=== PATIENT | female | born 1970 | race Caucasian/White ===

== ENCOUNTER 2016-12-07 20:49 | Observation (INO) | payer OTHER ==
[~2016-12-07] VITALS: Ht 154.9 cm; Wt 86.6 kg
--- NOTE | 2016-12-07 21:32 | DIAGNOSTIC IMAGING REPORT ---
CHEST ONE VIEW PORTABLE CLINICAL HISTORY: Shortness of breath. COMPARISON STUDY: No previous studies for comparison. FINDINGS: Lung volumes are normal. There is mild elevation/eventration of the right hemidiaphragm. Cardiac size is normal. Mediastinal contours are normal. There is no evidence of pulmonary edema. There is a possible small hiatal hernia. IMPRESSION: 1. No acute cardiopulmonary findings. 2. Suspected small hiatal hernia. Electronically signed by: James Rose M.D. 12/07/2016 9:30 PM Dictated Date/Time: 12/07/2016 9:29 PM
[2016-12-07 21:39] LABS: BASO % 0.5 %; BASO ABS # 0.03 K/uL (0-0.2); COMPLETE YES; EOS % 2.2 %; HEMATOCRIT 41.1 % (37-47); IG% 0.2 %; LYMPH % 26.6 %; MEAN CELL VOLUME 89.5 fL (80-100); MEAN CORPUSCULAR HEMOGLOBIN 31.2 pg (25-34); MEAN CORPUSCULAR HGB CONC 34.8 g/dl (32-36); MEAN PLATELET VOLUME 9.5 fL (7.4-10.4); MONO % 7.7 %; NEUT % 62.8 %; PLATELET COUNT 295 K/uL (130-400); RED BLOOD COUNT 4.59 M/uL (4.2-5.4)
[2016-12-07 21:42] LABS: URINE APPEARANCE CLOUDY (CLEAR); URINE BILIRUBIN NEG (NEG); URINE COLOR YELLOW; URINE EPITHELIAL CELL AUTO >30 /lpf (0-5); URINE NITRITE NEG (NEG); URINE SPECIFIC GRAVITY 1.029 (1.000-1.030); UROBILINOGEN NEG (NEG)
[2016-12-07 21:52] LABS: MANUAL MICROSCOPIC REQUIRED? NO; REVIEW REQ? YES
[2016-12-07 21:56] LABS: ZZUR CULT IF INDIC CLEAN CATCH YES
[2016-12-07 22:01] LABS: CALCIUM 8.7 mg/dl (8.5-10.1)
[2016-12-07] MEDS ORDERED: SODIUM CHLORIDE 0.9% 1000ML 1,000 ML IV STA (22:01)
[2016-12-07] MEDS ORDERED: ALBUTEROL 0.083% NEBU SOLN 3 ML VIAL INH STA (22:01)
[2016-12-07 22:02] LABS: ALT/SGPT 44 U/L (12-78); BLOOD UREA NITROGEN 19 mg/dl (7-18); BUN/CREATININE RATIO 16.2 (10-20); CARBON DIOXIDE 18 mmol/L (21-32); CHLORIDE 107 mmol/L (98-107); GLUCOSE 108 mg/dl (70-99); POTASSIUM 3.2 mmol/L (3.5-5.1); SODIUM 141 mmol/L (136-145)
[2016-12-07 22:07] LABS: ALKALINE PHOSPHATASE 72 U/L (45-117); AST/SGOT 30 U/L (15-37)
[2016-12-07] MEDS ORDERED: FLUO40CA8 PO (22:11)
[2016-12-07] MEDS ORDERED: CHOL1TAB42 PO (22:11)
[2016-12-07] MEDS ORDERED: CYAN500T PO (22:11)
[2016-12-07] MEDS ORDERED: FLUT0.15 NAE (22:11)
[2016-12-07 23:02] LABS: VEN BLD GAS O2 SATURATION < 60.0 %; VEN BLOOD GAS BASE EXCESS -1.4 mmol/L; VENOUS BLOOD GAS PCO2 34 mmHg (38.0-50.0); VENOUS BLOOD GAS PO2 20 mmHg
[2016-12-07] MEDS ORDERED: OPTIRAY 320 IV PRN (23:15)
[2016-12-08] VITALS (8 sets, daily range): BP systolic 95–121; BP diastolic 61–84; PULSE 80–92; TEMP 36.4–36.9; O2SAT 95–100; Ht 154.9 cm; Wt 86.6 kg
[2016-12-08] MEDS ORDERED: ONDANSETRON INJ 2 MG/ML 2 ML VIAL IV PRN (00:45)
[2016-12-08] MEDS ORDERED: POTASSIUM CHLR 20 MEQ / WTR 20 MEQ in PREMIXED WATER 100 ML IV STA (00:45)
[2016-12-08] MEDS ORDERED: ACETAMINOPHEN 325 MG TAB PO PRN (00:45)
[2016-12-08] MEDS ORDERED: MAGNESIUM HYDROXIDE SUSP 30 ML UDC PO PRN (00:45)
[2016-12-08] MEDS ORDERED: POLYETHYLENE (MIRALAX) 17 GM PACK PO PRN (00:45)
[2016-12-08] MEDS ORDERED: ALUMINUM/MAGNESIUM/SIMETH (MAALOX MAX) 30 ML UDC PO PRN (00:45)
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
[2016-12-08] MEDS ORDERED: SODIUM CHLORIDE 0.9% 1000ML 1,000 ML IV SCH (01:45)
[2016-12-08] MEDS: POTASSIUM CHLR 10MEQ / WTR IV SCH ×2 (02:07→03:47)
[2016-12-08] MEDS: IV FLUIDS COMPLETED PRN ×2 (03:49→05:15)
--- NOTE | 2016-12-08 04:52 | History and Physical ---
History & Physical Date & Time of Service: Dec 08, 2016 at 04:30 Chief Complaint: Chest Pain, Dyspnea On Exertion Primary Care Physician: Jan Mauro D.O. History of Present Illness Source: patient, family This is a 46 year old female with a PMH of allergic rhinitis, possible asthma, depression presents to the ER due to worsening shortness of breath for the past few weeks; states that she had been cleaning out her basement and thought that the mold exacerbated her allergies. Denies any chest pain/pressure, denies palpitations. Over the weekend, she developed chills, vomiting, diarrhea. The chills and the vomiting have resolved; the diarrhea persists. Upon presentation; EKG shows possible T wave inversions noted in the rivera- lateral leads. She states that she thinks stress and anxiety may also be contributing to her shortness of breath; she wakes up with this SOB due to her stress, anxiety, and thoughts. Family History Diabetes mellitus High cholesterol Hypertension Social History Smoking Status: Never Smoker Marital Status: Occupational Status: employed Allergies Coded Allergies: No Known Allergies (Unverified , 12/07/16) Home Medications Scheduled Cholecalciferol (Vitamin D), 10,000 INTER.UNIT PO DAILY Cyanocobalamin (Vitamin B-12), 500 MCG PO DAILY Fluoxetine (Prozac), 40 MG PO QAM Scheduled PRN Fluticasone Propionate (Nasal) (Flonase Allergy Relief), 1 SPRAY LAURYN DAILY PRN for PRN Review of Systems Constitutional: No fever, No chills Eyes: No worsening of vision ENT: No hearing loss, No unusual epistaxis Respiratory: + shortness of breath, No cough, No sputum Cardiovascular: No chest pain, No edema, No palpitations Abdomen: + nausea, + vomiting, + diarrhea, No pain, No constipation, No GI bleeding Musculoskeletal: No joint pain, No muscle pain Genitourinary - Female: No dysuria, No urinary frequency, No urinary urgency, No urinary incontinence, No urinary retention, No hematuria Neurologic: No weakness, No numbness/tingling, No vertigo, No balance problems Psychiatric: + depression symptoms, + anxiety Endocrine: No fatigue Hematologic / Lymphatic: No abnormal bleeding/bruising Integumentary: No rash Allergic / Immunologic: + environmental allergies, + seasonal allergies Physical Exam Vital Signs Date Time Temp Pulse Resp B/P (MAP) Pulse Ox O2 Delivery O2 Flow Rate FiO2 12/08/16 04:00 Room Air 12/08/16 01:49 Room Air 95.0 12/08/16 01:03 36.4 92 20 121/84 97 Room Air 12/08/16 00:49 69 18 106/77 98 Room Air 12/07/16 23:24 90 18 135/90 100 Room Air 12/07/16 22:48 89 18 121/77 97 Room Air 12/07/16 20:52 36.3 105 18 119/68 98 Room Air General Appearance: no apparent distress Respiratory/Chest: chest non-tender, lungs clear, normal breath sounds, no respiratory distress, no accessory muscle use Cardiovascular: regular rate, rhythm, no edema, no gallop, no JVD, no murmur, normal peripheral pulses Extremities/Musculoskelatal: normal capillary refill, no pedal edema Neurologic/Psych: no motor/sensory deficits, alert, normal mood/affect Skin: normal color Lymphatic: no adenopathy Diagnostics Laboratory Results Results Past 24 Hours Test 12/07/16 21:20 12/07/16 22:47 Range/Units White Blood Count 6.40 4.8-10.8 K/uL Red Blood Count 4.59 4.2-5.4 M/uL Hemoglobin 14.3 12.0-16.0 g/dL Hematocrit 41.1 37-47 % Mean Corpuscular Volume 89.5 80-100 fL Mean Corpuscular Hemoglobin 31.2 25-34 pg Mean Corpuscular Hemoglobin Concent 34.8 32-36 g/dl Platelet Count 295 130-400 K/uL Mean Platelet Volume 9.5 7.4-10.4 fL Neutrophils (%) (Auto) 62.8 % Lymphocytes (%) (Auto) 26.6 % Monocytes (%) (Auto) 7.7 % Eosinophils (%) (Auto) 2.2 % Basophils (%) (Auto) 0.5 % Neutrophils # (Auto) 4.03 1.4-6.5 K/uL Lymphocytes # (Auto) 1.70 1.2-3.4 K/uL Monocytes # (Auto) 0.49 0.11-0.59 K/uL Eosinophils # (Auto) 0.14 0-0.5 K/uL Basophils # (Auto) 0.03 0-0.2 K/uL RDW Standard Deviation 40.7 36.4-46.3 fL RDW Coefficient of Variation 12.5 11.5-14.5 % Immature Granulocyte % (Auto) 0.2 % Immature Granulocyte # (Auto) 0.01 0.00-0.02 K/uL D-Dimer 600 0-500 ug/L FEU Urine Color YELLOW Urine Appearance CLOUDY CLEAR Urine pH 5.0 4.5-7.5 Urine Specific [place] 1.029 1.000-1.030 Urine Protein NEG NEG Urine Glucose (UA) NEG NEG Urine Ketones TRACE NEG Urine Occult Blood 2+ NEG Urine Nitrite NEG NEG Urine Bilirubin NEG NEG Urine Urobilinogen NEG NEG Urine Leukocyte Esterase NEG NEG Urine WBC (Auto) 10-30 0-5 /hpf Urine RBC (Auto) 0-4 0-4 /hpf Urine Hyaline Casts (Auto) 1-5 0-5 /lpf Urine Epithelial Cells (Auto) >30 0-5 /lpf Urine Bacteria (Auto) 2+ NEG Urine Renal Epithelial Cells 0-5 /lpf Urine Pathogenic Casts 0 /lpf Urine Test NEG NEG Sodium Level 141 136-145 mmol/L Potassium Level 3.2 3.5-5.1 mmol/L Chloride Level 107 98-107 mmol/L Carbon Dioxide Level 18 21-32 mmol/L Anion Gap 16.0 3-11 mmol/L Blood Urea Nitrogen 19 7-18 mg/dl Creatinine 1.20 0.60-1.20 mg/dl Est Creatinine Clear Calc Drug Dose 59.7 ml/min Estimated GFR () 63.7 Estimated GFR (Non- 54.9 BUN/Creatinine Ratio 16.2 10-20 Random Glucose 108 70-99 mg/dl Calcium Level 8.7 8.5-10.1 mg/dl Total Bilirubin 0.4 0.2-1 mg/dl Direct Bilirubin < 0.1 0-0.2 mg/dl Aspartate Amino Transf (AST/SGOT) 30 15-37 U/L Alanine Aminotransferase (ALT/SGPT) 44 12-78 U/L Alkaline Phosphatase 72 45-117 U/L Troponin I < 0.015 0-0.045 ng/ml Total Protein 8.5 6.4-8.2 gm/dl Albumin 4.1 3.4-5.0 gm/dl Lipase 122 73-393 U/L Venous Blood pH 7.43 7.36-7.41 Venous Blood Partial Pressure CO2 34 38.0-50.0 mmHg Venous Blood Partial Pressure O2 20 mmHg Venous Blood HCO3 22 mmol/L Venous Blood Oxygen Saturation < 60.0 % Venous Blood Base Excess -1.4 mmol/L Microbiology Results 12/07/16 Urine Culture, Received Pending Diagnostic Radiology CHEST ONE VIEW PORTABLE CLINICAL HISTORY: Shortness of breath. COMPARISON STUDY: No previous studies for comparison. FINDINGS: Lung volumes are normal. There is mild elevation/eventration of the right hemidiaphragm. Cardiac size is normal. Mediastinal contours are normal. There is no evidence of pulmonary edema. There is a possible small hiatal hernia. IMPRESSION: 1. No acute cardiopulmonary findings. 2. Suspected small hiatal hernia. CT for PE negative EKG Normal sinus rhythm Possible Left atrial enlargement T wave abnormality, consider lateral ischemia Impression Assessment and Plan This is a 46 year old female with a PMH of allergic rhinitis, possible asthma, depression presents to the ER due to worsening shortness of breath/EKG changes Shortness of Breath Dyspnea on Exertion EKG changes possible T wave inversion will rule out ACS, though not many risk factors trend cardiac enzymes repeat EKG in AM to follow T wave echo ordered monitor in tele Depression/Anxiety continue Prozac patient states that stressors are causing her more anxiety recently her shortness of breath may be related to anxiety more than cardiac or pulmonary issues consider starting an as needed benzo on discharge Viral Infection recent illness, diarrhea, vomiting, likely viral in nature no fevers, no leukocytosis hypokalemia - replace K Allergic Rhinitis/Seasonal/Environmental Allergies follows with an furniture builder weekly allergy shots recent exposure to black mold to follow with furniture builder may need PFTs as outpatient to r/o asthma DVT ppx subq heparin FULL CODE Advanced Directives Existing Living Will: No Existing Power of Roller Presser Operator: No VTE Prophylaxis VTE Risk Assessment Done? Y/N: Yes Risk Level: Low
[2016-12-08] MEDS: ALBUT/IPRATROP 3MG/0.5MG NEB 3 ML VIAL INH SCH ×2 (07:15→12:24)
--- NOTE | 2016-12-08 08:09 | DIAGNOSTIC IMAGING REPORT ---
CHEST CTA for PULMONARY ARTERIES CT DOSE: 1216.71 mGy.cm HISTORY: Shortness of breath. TECHNIQUE: Multiaxial CT images of the chest were performed following the intravenous administration of contrast to evaluate the pulmonary arteries. Maximal intensity projection images were also obtained. COMPARISON STUDY: Chest 12/07/2016. FINDINGS: There is a normal caliber thoracic aorta with no evidence for dissection. There is no evidence for pulmonary embolus. No pleural effusions. No pneumothorax. The liver and spleen are unremarkable. No mediastinal or hilar lymphadenopathy. The central airways are patent. The lungs are clear. Small hiatus hernia. Cholecystectomy. A 4 mm subpleural nodular density along the left major fissure is of doubtful clinical significance. IMPRESSION: No evidence for pulmonary embolus. Small hiatus hernia. Electronically signed by: Williams Fisher M.D. 12/08/2016 8:08 AM Dictated Date/Time: 12/08/2016 8:03 AM
[2016-12-08 08:12] LABS: PROTHROMBIN TIME (PATIENT) 10.7 SECONDS (9.0-12.0)
[2016-12-08] MEDS ORDERED: CYANOCOBALAMIN 500 MCG TAB (VIT B-12) PO SCH (09:00)
[2016-12-08] MEDS ORDERED: FLUOXETINE HCL 20 MG CAP PO SCH (09:00)
--- NOTE | 2016-12-08 09:01 | ECHOCARDIOGRAM REPORT ---
*NOTICE TO RECEIVING [employer] AGENCY This information is strictly Confidential and protected under [place] law. [place] law prohibits you from making any further disclosure of this information unless further disclosure is expressly permitted by the written consent of the person to whom it pertains or is authorized by law. A general authorization for the release of medical or other information is not sufficient for this purpose. Hospital accepts no responsibility if the information is made available to any other person, INCLUDING THE PATIENT. Interpretation Summary * Name: AYDEE ROBINS Study Date: 12/08/2016 07:04 AM BP: 101/64 mmHg * Patient Location: C.2T\S\S242\S\1 HR: 77 * : 1970 (M/d/yyyy) Gender: Female Height: 61 in * Age: 46 yrs Ethnicity: CA Weight: 190 lb * Ordering Physician: Andrew Godoy * Referring Physician: Self, Referred * Performed By: Li Asencio RCS * * Reason For Study: CHEST PAIN * BSA: 1.8 m2 * -- Conclusions -- * The left ventricle is normal in size. * There is mild concentric left ventricular hypertrophy. * The left ventricular wall motion is normal. * Ejection Fraction = 60-65%. * There is no valvular disease * There is no pericardial effusion. Procedure Details * A complete two-dimensional transthoracic echocardiogram was performed (2D, M-mode, Doppler and color flow Doppler). Left Ventricle * The left ventricle is normal in size. * There is mild concentric left ventricular hypertrophy. * Ejection Fraction = 60-65%. * Left ventricular systolic function is normal. * The left ventricular wall motion is normal. Right Ventricle * The right ventricle is normal in size and function. Atria * The left atrial size is normal. * Right atrial size is normal. * No ASD detected; PFO is not assessed. Mitral Valve * The mitral valve is normal. * There is no mitral valve stenosis. * There is trace mitral regurgitation. Tricuspid Valve * The tricuspid valve is normal. * There is no tricuspid stenosis. * There is trace tricuspid regurgitation. Aortic Valve * The aortic valve is trileaflet. * No hemodynamically significant valvular aortic stenosis. * No aortic regurgitation is present. Pulmonic Valve * The pulmonic valve is not well visualized. Great Vessels * The aortic root is normal size. Pericardium/Pleural * There is no pericardial effusion. Great Vessels * Normal inferior vena cava diameter and respiratory variation suggests normal central venous pressure. MMode 2D Measurements and Calculations IVSd 1.1 cm IVSs 1.5 cm LVIDd 3.9 cm LVIDs 2.3 cm LVPWd 1.1 cm LVPWs 1.4 cm IVS/LVPW 0.98 FS 40.1 % EDV(Teich) 66.6 ml ESV(Teich) 19.1 ml EF(Teich) 71.4 % EDV(cubed) 60.1 ml ESV(cubed) 12.9 ml EF(cubed) 78.5 % % IVS thick 35.6 % % LVPW thick 19.1 % LV mass(C)d 146.6 grams LV mass(C)dI 79.3 grams/m\S\2 LV mass(C)s 108.4 grams LV mass(C)sI 58.6 grams/m\S\2 SV(Teich) 47.5 ml SI(Teich) 25.7 ml/m\S\2 SV(cubed) 47.2 ml SI(cubed) 25.5 ml/m\S\2 Ao root diam 2.9 cm Ao root area 6.7 cm\S\2 LA dimension 2.8 cm LA/Ao 0.96 LVOT diam 2.0 cm LVOT area 3.2 cm\S\2 LVAd ap4 26.3 cm\S\2 LVLd ap4 6.6 cm EDV(MOD-sp4) 86.4 ml EDV(sp4-el) 88.7 ml LVAs ap4 14.3 cm\S\2 LVLs ap4 4.8 cm ESV(MOD-sp4) 34.9 ml ESV(sp4-el) 35.8 ml EF(MOD-sp4) 59.6 % EF(sp4-el) 59.7 % LVAd ap2 26.2 cm\S\2 LVLd ap2 6.7 cm EDV(MOD-sp2) 82.7 ml EDV(sp2-el) 87.6 ml LVAs ap2 15.5 cm\S\2 LVLs ap2 5.6 cm ESV(MOD-sp2) 33.9 ml ESV(sp2-el) 36.0 ml EF(MOD-sp2) 59.1 % EF(sp2-el) 58.9 % LVLd %diff 0.91 % EDV(MOD-bp) 85.2 ml LVLs %diff 14.3 % ESV(MOD-bp) 37.1 ml EF(MOD-bp) 56.4 % SV(MOD-sp4) 51.5 ml SI(MOD-sp4) 27.9 ml/m\S\2 SV(MOD-sp2) 48.8 ml SI(MOD-sp2) 26.4 ml/m\S\2 SV(MOD-bp) 48.1 ml SI(MOD-bp) 26.0 ml/m\S\2 SV(sp4-el) 52.9 ml SI(sp4-el) 28.6 ml/m\S\2 SV(sp2-el) 51.6 ml SI(sp2-el) 27.9 ml/m\S\2 Doppler Measurements and Calculations MV E max mary 90.6 cm/sec MV A max mary 69.6 cm/sec MV E/A 1.3 MV P1/2t max mary 96.5 cm/sec MV P1/2t 52.2 msec MVA(P1/2t) 4.2 cm\S\2 MV dec slope 541.9 cm/sec\S\2 MV dec time 0.15 sec Ao V2 max 101.2 cm/sec Ao max PG 4.1 mmHg Ao max PG (full) 0.29 mmHg BRANDEE(V,A) 3.1 cm\S\2 BRANDEE(V,D) 3.1 cm\S\2 LV V1 max PG 3.8 mmHg LV V1 max 97.6 cm/sec PA V2 max 105.9 cm/sec PA max PG 4.5 mmHg
[2016-12-08] MEDS ORDERED: POTASSIUM CHLORIDE 10 MEQ TABCR PO STA (10:18)
--- NOTE | 2016-12-08 10:48 | CARDIOLOGY CONSULTATION ---
DATE OF CONSULTATION: 12/08/2016 The patient was seen and examined. Chart, medications, and telemetry were reviewed. REFERRING PHYSICIAN: Dr. Maki. PRIMARY CARE PHYSICIAN: Dr. Mauro. INDICATIONS: Abnormal EKG and dyspnea. HISTORY OF PRESENT ILLNESS: The patient is a 46-year-old female without prior documented cardiac disease, who notes clinical history of fatigue, shortness of breath, dyspnea x2 years, and acute worsening over the past 2 weeks. She attributed initially to possible mold exposure in a flooded basement. She presented to the Emergency Room yesterday with worsening dyspnea as well as GI complaints of nausea and increasing diarrhea of 2 weeks' duration. She denies prior history of myocardial infarction, congestive heart failure, rheumatic fever, or scarlet fever. She did undergo cardiac evaluation approximately [address] Magana's office in [place] due to complaints of exertional dyspnea. She notes no unexplained fevers or infections other than as described above. Weight has been gradually trending upwards over the past 2 years of approximately 15 pounds. Notes no melena, hematochezia, dysuria or hematuria. Notes no rash or arthritic complaints. Notes that cholesterols were "okay." Past testing are slightly elevated. She was treated for Lyme disease in the remote past. Notes no recent exposure or rash. ALLERGIES: None. MEDICATIONS: Prozac 40 mg q.a.m., Flonase p.r.n., vitamin B and vitamin D supplements. PAST SURGICAL HISTORY: Notable for and cholecystectomy. FAMILY HISTORY: Positive for heart disease in father at age of 45, strokes in mother and other family members. SOCIAL HISTORY: The patient resides in [place]. 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 Single mother. She is a nonsmoker and nondrinker. PHYSICAL EXAMINATION: GENERAL: The patient is a pleasant, age-appropriate female, moderately obese. VITAL SIGNS: Heart rate is 80 and blood pressure is 100/60. HEENT: Normocephalic and atraumatic. Nares without discharge. Throat was clear. NECK: Supple without thyromegaly, lymphadenopathy, JVD or bruit. LUNGS: Clear to auscultation. There is minimal wheezing on forced expiration and cough. CARDIOVASCULAR: Regular with normal S1 and S2. There is no murmur, gallop or rub. PMI is nondisplaced. ABDOMEN: Obese, soft, and nontender without hepatosplenomegaly. EXTREMITIES: Without cyanosis or clubbing. There is no peripheral edema. Femoral and distal pulses are 2+/4. NEUROLOGIC: The patient is answering questions and moving extremities with strength. DIAGNOSTIC STUDIES: EKG on presentation demonstrated sinus rhythm at a rate of 89 with borderline criteria for left atrial enlargement, ST segment abnormalities with T-wave abnormalities and ST depression in V3 through V6. LABORATORY DATA: Laboratory studies on presentation, sodium is 141, potassium is 3.2, chloride is 107, bicarbonate is 18, BUN is 19, and creatinine is 1.2. Albumin level is 4.1. AST, ALT, CK-MB and troponins are all normal. White cell count 6.4 and hemoglobin is 14.3. CT scan of the chest revealed no evidence of pulmonary embolus. Chest x-ray revealed no infiltrate or edema. Echocardiogram demonstrates mild left ventricular hypertrophy with normal left ventricular systolic function, EF 60%-65%. No valvular disease. No pericardial effusion with normal wall motion. IMPRESSION: A 46-year-old female presents now with symptoms of shortness of breath of several years' duration with acute exacerbation over the past 2 weeks, complains of GI upset and diarrhea, referred now for evaluation of abnormal EKG. No acute findings of acute coronary syndrome present. EKG demonstrates possible anterolateral ischemia, though with preserved LV function on echocardiogram. RECOMMENDATIONS: Supplement potassium as already ordered, though would switch to oral supplementation. Given current complaints of IV irritation, we will refer for stress echocardiography today. In the interim, we will obtain records from prior evaluations through Dr. Magana's office. TSH and lipid panel ordered to be added to current laboratory studies.
[2016-12-08 11:30] LABS: CHOLESTEROL/HDL RATIO 3.6; THYROID STIMULATING HORMONE 2.73 uIu/ml (0.300-4.500)
[2016-12-08] MEDS ORDERED: HEPARIN SOD 5000 UNIT/0.5 ML CARP SQ SCH (14:00)
--- NOTE | 2016-12-08 15:15 | EXERCISE STRESS ECHO ---
*NOTICE TO RECEIVING LIBERTARIAN AGENCY This information is strictly Confidential and protected under [place] law. [place] law prohibits you from making any further disclosure of this information unless further disclosure is expressly permitted by the written consent of the person to whom it pertains or is authorized by law. A general authorization for the release of medical or other information is not sufficient for this purpose. Hospital accepts no responsibility if the information is made available to any other person, INCLUDING THE PATIENT. Interpretation Summary * Name: AYDEE ROBINS Study Date: 12/08/2016 01:06 PM BP: 102/63 mmHg * Patient Location: C.2T\S\S242\S\1 HR: 67 * : 1970 (M/d/yyyy) Gender: Female Height: 61 in * Age: 46 yrs Ethnicity: CA Weight: 190 lb * Ordering Physician: Siddhartha Marquez * Referring Physician: Self, Referred * Performed By: Li Asencio RCS * * Reason For Study: CHEST PAIN * BSA: 1.8 m2 * The study was technically adequate. * STRESS STUDY: Normal exercise stress echocardiogram. No echocardiographic or ECG evidence of myocardial ischemia having achieved heart rate adequate for diagnostic purposes. * Exercise capacity is average. Procedure Details * ECHOEX, CPT #25347 Left Ventricle * Left ventricular systolic function is normal. * The left ventricular ejection fraction increases normally with stress. The left ventricular end-systolic cavity size reduces post-stress (normal response). The left ventricular wall motion with stress is normal. * Resting wall motion: Normal. Stress wall motion: Appropriate increase in Left ventricular systolic function and decrease in cavity size. No stress induced segmental wall motion abnormalities. Stress Parameters * The baseline ECG displays normal sinus rhythm. * The baseline ECG displays diffuse abnormal ST segments. * The baseline ECG displays diffuse abnormal T waves. * Stress ECG: No ischemia. * The stress portion of this study was personally supervised by the undersigned interpreting physician. * Rest heart rate was '67' BPM. * Rest blood pressure was '102/63' * Maximum heart rate achieved was 157 bpm. * Maximum heart rate was 89 % of maximum age-predicted heart rate. * Maximum blood pressure was '153/62' * Total exercise time was '07:58' * Maximum exercise MET level achieved was '10.00' METS * Maximum treadmill speed was '3.40' miles per hour. * Maximum treadmill elevation was '14.00'% grade. * Normal blood pressure response to exercise. * The patient exhibited fatigue during exercise. * Exercise was terminated due to 'fatigue'
[2016-12-08 15:46] LABS: CKMB/CK RATIO 1.1 (0-3.0)
[2016-12-08] MEDS ORDERED: ALBUT/IPRATROP 3MG/0.5MG NEB 3 ML VIAL INH PRN (16:00)
--- NOTE | 2016-12-08 16:30 | Discharge Instructions ---
Discharge Instructions Date of Service Dec 08, 2016. Admission Reason for Admission: Chest Pain, Dyspnea On Exertion Discharge Discharge Diagnosis / Problem: Shortness of breath Discharge Goals Goal(s): Diagnostic testing, Prevent Disease Progression Activity Recommendations Activity Limitations: per Instructions/Follow-up section . Instructions / Follow-Up Instructions / Follow-Up Cont all medications as instructed. Please note that 54242 IU of vitamin D3 daily is too much of this fat soluble vitamin. You should not exceed for than 4000 IU daily, but first I would recommend rechecking your vitamin D level before continuing with supplementation. I have provided you with a prescription for labwork to be done prior to your primary care follow-up. Please take this to wherever you get labwork done, and they should fax the results to Dr. Mauro's office. I recommend a one week follow-up with your primary care provider to ensure that you are doing well post-discharge. I would also recommend referrals to see a Contact Lens Lathe Operator (lung specialist) to work up the shortness of breath more and a Echo Vascular Technologist for working up the chronic diarrhea. While waiting to see the Gastro doctor try a trial of lactose-free diet, which means that you will exclude all milk and dairy products. Another possible lab you could get checked is a stool sample for Helicobacter pylori as we discussed. It was a pleasure taking care of you! Call if you have any questions or problems. You can reach a [facility] hospitalist on duty at [facility] 24 hours a day by calling [phone]. Take care of yourself. Mireya Maki DO [facility] Hospitalist Current Hospital Diet Patient's current hospital diet: AHA Diet (Heart Healthy) Discharge Diet Recommended Diet: Regular Diet Procedures Procedures Performed: Stress test 12/08 Pending Studies Studies pending at discharge: no Laboratory Results Lipid Panel Test 12/08/16 07:15 Range/Units Triglycerides Level 82 0-150 mg/dl Cholesterol Level 140 0-200 mg/dl HDL Cholesterol 39 mg/dl Cholesterol/HDL Ratio 3.6 LDL Cholesterol, Calculated 85 mg/dl Medical Emergencies . Who to Call and When: Medical Emergencies: If at any time you feel your situation is an emergency, please call 911 immediately. . Non-Emergent Contact Non-Emergency issues call your: Primary Care Provider . . "Provider Documentation" section prepared by Mireya Maki. . VTE Core Measure Inpt VTE Proph given/why not?: Unfractionated heparin SQ
--- NOTE | 2016-12-08 16:37 | Discharge Summary ---
Discharge Summary Date of Service Dec 08, 2016. Discharge Summary Admission Date: Dec 08, 2016 at 00:48 Discharge Date: Dec 08, 2016 Discharge Disposition: Home Principal Diagnosis: Shortness of breath Chronic diarrhea Functional Dyspepsia Vit D def Hypokalemia-replaced Procedures: Stress test-12/08 TTE-12/08 Vaccinations: None. Consultations: Cardiology-Dr Marquez Pending Studies/Follow-Up: see instructions below. Medication Reconciliation Continued Medications: Cyanocobalamin (Vitamin B-12) 500 Mcg Tab 500 MCG PO DAILY, TAB Fluoxetine (Prozac) 40 Mg Cap 40 MG PO QAM, CAP Fluticasone Propionate (Nasal) (Flonase Allergy Relief) 50 Mcg/Act Spr 1 SPRAY LAURYN DAILY PRN for PRN Discontinued Medications: Cholecalciferol (Vitamin D) 5,000 Unit Tab 56600 INTER.UNIT PO DAILY Admission Information HPI (per Admitting provider): This is a 46 year old female with a PMH of allergic rhinitis, possible asthma, depression presents to the ER due to worsening shortness of breath for the past few weeks; states that she had been cleaning out her basement and thought that the mold exacerbated her allergies. Denies any chest pain/pressure, denies palpitations. Over the weekend, she developed chills, vomiting, diarrhea. The chills and the vomiting have resolved; the diarrhea persists. Upon presentation; EKG shows possible T wave inversions noted in the rivera- lateral leads. She states that she thinks stress and anxiety may also be contributing to her shortness of breath; she wakes up with this SOB due to her stress, anxiety, and thoughts. Physical Exam (per Admitting): General Appearance: no apparent distress Respiratory/Chest: chest non-tender, lungs clear, normal breath sounds, no respiratory distress, no accessory muscle use Cardiovascular: regular rate, rhythm, no edema, no gallop, no JVD, no murmur , normal peripheral pulses Extremities/Musculoskelatal: normal capillary refill, no pedal edema Neurologic/Psych: no motor/sensory deficits, alert, normal mood/affect Skin: normal color Lymphatic: no adenopathy Hospital Course She was admitted to telemetry and ruled out with three sets of negative cardiac enzymes overnight. There were no notable events on telemetry. Although EKG demonstrated possible anterolateral ischemia, there was preserved LV function on echocardiogram and further stress echocardiogram was negative for inducible ischemia. At time of discharge, she was mentating appropriately, tolerating PO appropriately and was ambulatory. Vitamin D supplementation was stopped until outpatient labwork could be obtained. She was discharged in stable condition with close recommended follow-up with PCP. Total time spent on discharge = 60 minutes This includes examination of the patient, discharge planning, medication reconciliation, and communication with other providers. Discharge Instructions Discharge Instructions Date of Service Dec 08, 2016. Admission Reason for Admission: Chest Pain, Dyspnea On Exertion Discharge Discharge Diagnosis / Problem: Shortness of breath Discharge Goals Goal(s): Diagnostic testing, Prevent Disease Progression Activity Recommendations Activity Limitations: per Instructions/Follow-up section . Instructions / Follow-Up Instructions / Follow-Up Cont all medications as instructed. Please note that 99524 IU of vitamin D3 daily is too much of this fat soluble vitamin. You should not exceed for than 4000 IU daily, but first I would recommend rechecking your vitamin D level before continuing with supplementation. I have provided you with a prescription for labwork to be done prior to your primary care follow-up. Please take this to wherever you get labwork done, and they should fax the results to Dr. Mauro's office. I recommend a one week follow-up with your primary care provider to ensure that you are doing well post-discharge. I would also recommend referrals to see a Multiple Spindle Router Operator (lung specialist) to work up the shortness of breath more and a Relief Driller for working up the chronic diarrhea. While waiting to see the Gastro doctor try a trial of lactose-free diet, which means that you will exclude all milk and dairy products. Another possible lab you could get checked is a stool sample for Helicobacter pylori as we discussed. It was a pleasure taking care of you! Call if you have any questions or problems. You can reach a [facility] hospitalist on duty at [facility] 24 hours a day by calling [phone]. Take care of yourself. Mireya Maki, DO [facility] Heart[facility] Additional Copies To Jan Mauro D.O.
== END 2016-12-08 17:20 | disposition home or self-care (01) ==
LOC: C.EDB 20:51 → C.2T 12-08 00:48 → ENRESERV 12-08 00:56
PROVIDERS: ADMIT Family Medicine; ATTEND Hospitalist
DX: R06.02 Shortness of breath (principal); K52.9 Noninfective gastroenteritis and colitis, unspecified; K30 Functional dyspepsia; E55.9 Vitamin D deficiency, unspecified; E87.6 Hypokalemia; Z83.3 Family history of diabetes mellitus; Z82.49 Family history of ischemic heart disease and other diseases of the circulatory system

== ENCOUNTER 2017-08-12 12:42 | Emergency (ER) | payer OTHER ==
[~2017-08-12] VITALS: Ht 154.9 cm; Wt 91.4 kg
[~2017-08-12 12:42] MED LIST: CYAN500T PO; FLUO40CA8 PO; FLUT0.15 NAE
[2017-08-12 12:45] VITALS: TEMP 36.7; Ht 154.9 cm; Wt 91.4 kg
[2017-08-12] MEDS ORDERED: SODIUM CHLORIDE 0.9% 1000ML 1,000 ML IV STA (13:20)
--- NOTE | 2017-08-12 13:27 | EMERGENCY ROOM VISIT NOTE ---
History First contact with patient: 13:02 Chief Complaint: RESPIRATORY PROBLEMS Stated Complaint: SORE THROAT, TIGHTNESS IN CHEST, STREP IN MAY Nursing Triage Summary: sore throat last several days positive strep in May short of breath last several days productive cough with yellow sputum History of Present Illness The patient is a 47 year old female who presents to the Emergency Room via private vehicle with complaints of "sore throat, tightness in chest, strep throat in May". The patient states that since May around [place] time she lost her voice, and then was diagnosed with strep throat. She states that she did not get the results of the positive culture for nearly one month. She states she was given penicillin, and amoxicillin and then was believed to be Augmentin. She notes she is still feeling some tightness in her chest, coughing, feeling short of breath. She does note no personal history of MT, but does have a father who had an MT in his 40s. She did have a normal stress test performed back in November of this year. She has a history of allergies and asthma. She's been following closely with her family doctor. She also notes productive cough. She states that at times the chest pain can be with exertion and then other times will come on without being provoked. She states that she took Zantac when she felt this and then it went away. She notes no chest pain today. Review of Systems A complete 10-point Review of Systems was discussed with the patient, with pertinent positives and negatives listed in the History of Present Illness. All remaining Review of Systems questions can be considered negative unless otherwise specified. Past Medical/Surgical History Medical Problems: (1) Chest pain (2) Dyspnea on exertion (3) No Known Active Medical Problems Family History Diabetes mellitus High cholesterol Hypertension Social History Smoking Status: Never Smoker Marital Status: Occupation Status: employed Current/Historical Medications Scheduled Azithromycin (Zithromax), 1 PKT PO UD Benzonatate (Tessalon Perles), 1 CAP PO TID Cholecalciferol (Vitamin D), 10,000 INTER.UNIT PO DAILY Cyanocobalamin (Vitamin B-12), 500 MCG PO DAILY Fluoxetine (Prozac), 40 MG PO QAM Loratadine (Claritin), 10 MG PO DAILY Mometasone Furoate (Inhalation (Asmanex Twisthaler 120 Me), 1 PUFF PO DAILY Potassium Chloride (Micro-K Ext Rel), 10 MEQ PO DAILY Prednisone (Prednisone), 0 PO DAILY Ranitidine (Zantac), 300 MG PO HS Physical Exam Vital Signs Date Time Temp Pulse Resp B/P (MAP) Pulse Ox O2 Delivery O2 Flow Rate FiO2 08/12/17 16:10 82 19 108/78 99 Room Air 08/12/17 14:19 94 08/12/17 14:15 78 18 118/87 96 Room Air 08/12/17 14:10 96 Room Air 08/12/17 12:50 Room Air 08/12/17 12:45 36.7 110 20 141/86 95 Room Air Physical Exam VITAL SIGNS - Vital signs and nursing notes were reviewed. Stable. Tachycardic. GENERAL -47-year-old female appearing her stated age who is in no acute distress. Communicates well with provider and answers questions appropriately. SKIN - Without rashes. No petechial rashes. HEAD - NC/AT. EYES - PERRL with EOMI bilaterally. Sclera anicteric. EARS - No deformities of external structures noted on gross examination bilaterally. NOSE - Midline and without cyanosis. No epistaxis or purulent drainage noted. MOUTH/OROPHARYNX - Without perioral cyanosis. NECK - Neck with FROM. No nuchal rigidity. LUNGS - Chest wall symmetric without accessory muscle use, intercostals retractions, or central cyanosis. Normal vesicular breath sounds CTA B/L. No wheezes, rales, or rhonchi appreciated. CARDIAC - RRR with S1/S2. No murmur, rubs, or gallops appreciated. ABDOMEN - Abdominal contour normal without pulsations or visible masses. BS normoactive all four quadrants. No tenderness, palpable masses, hepatosplenomegaly, or ascites noted. EXTREMITIES - No clubbing or peripheral cyanosis. No pretibial edema present. +5 /5 strength noted in UE/LE bilaterally. NEUROLOGIC - Cranial nerves II through XII grossly intact. Sensory intact to light touch throughout. PSYCH - A&O, and cooperates fully with examiner. Pt is very pleasant and interacts well with examiner. Medical Decision & Procedures ER Provider Diagnostic Interpretation: CHEST ONE VIEW PORTABLE HISTORY: 47 years-old Female Cough, sore throat, chest pain, dyspnea acute cough with atypical chest pain COMPARISON: Chest radiograph and CTA of the chest 12/07/2016 TECHNIQUE: Portable AP view of the chest FINDINGS: Cardiomediastinal and hilar silhouettes are within normal limits. There is no pneumothorax, pleural effusion, focal airspace consolidation or overt pulmonary edema. Mild right hemidiaphragmatic elevation. Small hiatal hernia. Bones of the chest appear grossly intact. IMPRESSION: 1. No acute process. 2. Small hiatal hernia. The above report was generated using voice recognition software. It may contain grammatical, syntax or spelling errors. Electronically signed by: Juma Ron M.D. 08/12/2017 1:48 PM Dictated Date/Time: 08/12/2017 1:47 PM (CHEST FOR PE) ANGIO WITH CT DOSE: 650.14 mGy.cm HISTORY: 47 years-old Female presents with acute cough and sore throat with dyspnea TECHNIQUE: Multiple CTA images of the chest were obtained after the intravenous administration of 89 ml Optiray 320. Coronal and sagittal MIPS were obtained from the axial data set and were submitted for review. A dose lowering technique was utilized adhering to the principles of ALARA. COMPARISON: Chest radiograph of same day, CTA of the chest 12/07/2016 FINDINGS: CTA: Heart is normal in size without pericardial effusion. Coronary arterial disease is suggested. Thoracic aorta is normal in both course and caliber with bovine aortic arch. Imaged great vessels are patent. There is no aortic aneurysm or dissection identified. The pulmonary arterial tree is opacified to level of the proximal subsegmental branches and demonstrates no focal filling defects to suggest pulmonary thromboembolic disease. CT CHEST: Mildly heterogeneous appearance of the thyroid without dominant nodule. No pathologic adenopathy identified. There is no pneumothorax, pleural effusion, focal airspace consolidation or overt pulmonary edema. Mild dependent subsegmental bibasilar atelectasis. 4 mm. Fissural lymph node is seen adjacent to the superior segment left lower lobe on image 146 series 4. No suspicious very nodules or masses identified. Central airways are patent. Prior cholecystectomy. No acute abnormality of the imaged upper abdomen. Small hiatal hernia. Radiodense focus is seen within the gastric lumen which may reflect a pill fragment. Soft tissues are unremarkable. Bones appear intact. IMPRESSION: 1. No acute intrathoracic abnormality identified, specifically no acute aortic pathology or evidence of pulmonary thromboembolic disease. 2. No focal airspace consolidation or pathologic adenopathy. 3. Prior cholecystectomy. 4. Small hiatal hernia. The above report was generated using voice recognition software. It may contain grammatical, syntax or spelling errors. Electronically signed by: Juma Ron M.D. 08/12/2017 3:43 PM Dictated Date/Time: 08/12/2017 3:39 PM Laboratory Results 08/12/17 13:30 Red Blood Count 4.20, Mean Corpuscular Volume 90.0, Mean Corpuscular Hemoglobin 30.5, Mean Corpuscular Hemoglobin Concent 33.9, Mean Platelet Volume 8.9, Neutrophils (%) (Auto) 77.7, Lymphocytes (%) (Auto) 10.9, Monocytes (%) (Auto) 9.4, Eosinophils (%) (Auto) 1.4, Basophils (%) (Auto) 0.3, Neutrophils # (Auto) 4.47, Lymphocytes # (Auto) 0.63, Monocytes # (Auto) 0.54, Eosinophils # (Auto) 0.08, Basophils # (Auto) 0.02 08/12/17 13:30 Test 08/12/17 13:30 08/12/17 13:35 08/12/17 14:20 White Blood Count 5.76 K/uL (4.8-10.8) Red Blood Count 4.20 M/uL (4.2-5.4) Hemoglobin 12.8 g/dL (12.0-16.0) Hematocrit 37.8 % (37-47) Mean Corpuscular Volume 90.0 fL (80-100) Mean Corpuscular Hemoglobin 30.5 pg (25-34) Mean Corpuscular Hemoglobin Concent 33.9 g/dl (32-36) Platelet Count 241 K/uL (130-400) Mean Platelet Volume 8.9 fL (7.4-10.4) Neutrophils (%) (Auto) 77.7 % Lymphocytes (%) (Auto) 10.9 % Monocytes (%) (Auto) 9.4 % Eosinophils (%) (Auto) 1.4 % Basophils (%) (Auto) 0.3 % Neutrophils # (Auto) 4.47 K/uL (1.4-6.5) Lymphocytes # (Auto) 0.63 K/uL (1.2-3.4) Monocytes # (Auto) 0.54 K/uL (0.11-0.59) Eosinophils # (Auto) 0.08 K/uL (0-0.5) Basophils # (Auto) 0.02 K/uL (0-0.2) RDW Standard Deviation 41.7 fL (36.4-46.3) RDW Coefficient of Variation 12.8 % (11.5-14.5) Immature Granulocyte % (Auto) 0.3 % Immature Granulocyte # (Auto) 0.02 K/uL (0.00-0.02) Prothrombin Time 10.6 SECONDS (9.0-12.0) Prothromb Time International Ratio 1.0 (0.9-1.1) Activated Partial Thromboplast Time 24.3 SECONDS (21.0-31.0) Partial Thromboplastin Ratio 0.9 D-Dimer 650 ug/L FEU (0-500) Anion Gap 8.0 mmol/L (3-11) Est Creatinine Clear Calc Drug Dose 88.1 ml/min Estimated GFR () 98.7 Estimated GFR (Non- 85.2 BUN/Creatinine Ratio 15.0 (10-20) Calcium Level 8.8 mg/dl (8.5-10.1) Magnesium Level 2.1 mg/dl (1.8-2.4) Total Bilirubin 0.4 mg/dl (0.2-1) Aspartate Amino Transf (AST/SGOT) 10 U/L (15-37) Alanine Aminotransferase (ALT/SGPT) 23 U/L (12-78) Alkaline Phosphatase 64 U/L (45-117) Total Creatine Kinase 75 U/L (26-192) Creatine Kinase MB 0.6 ng/ml (0.5-3.6) Creatine Kinase MB Ratio 0.8 (0-3.0) Troponin I < 0.015 ng/ml (0-0.045) Total Protein 7.5 gm/dl (6.4-8.2) Albumin 3.5 gm/dl (3.4-5.0) Globulin 4.0 gm/dl (2.5-4.0) Albumin/Globulin Ratio 0.9 (0.9-2) Lipase 130 U/L (73-393) Thyroid Stimulating Hormone (TSH) 2.520 uIu/ml (0.300-4.500) Influenza Type A Antigen Neg for Influ A (NEG) Influenza Type B Antigen Neg for Influ B (NEG) Urine Color YELLOW Urine Appearance CLOUDY (CLEAR) Urine pH 5.0 (4.5-7.5) Urine Specific [place] 1.021 (1.000-1.030) Urine Protein NEG (NEG) Urine Glucose (UA) NEG (NEG) Urine Ketones NEG (NEG) Urine Occult Blood NEG (NEG) Urine Nitrite NEG (NEG) Urine Bilirubin NEG (NEG) Urine Urobilinogen NEG (NEG) Urine Leukocyte Esterase SMALL (NEG) Urine WBC (Auto) 10-30 /hpf (0-5) Urine RBC (Auto) 5-10 /hpf (0-4) Urine Hyaline Casts (Auto) 1-5 /lpf (0-5) Urine Epithelial Cells (Auto) >30 /lpf (0-5) Urine Bacteria (Auto) 2+ (NEG) Urine Pathogenic Casts /lpf (0) Urine Mucus PRESENT (NONE PRSENT) Urine Test NEG (NEG) Medications Administered Medications (Trade) Dose Ordered Sig/Yolanda Route Start Time Stop Time Status Last Admin Dose Admin Sodium Chloride 1,000 ml @ 999 mls/hr Q1H1M STAT IV 08/12/17 13:20 08/12/17 14:20 DC 08/12/17 13:20 999 MLS/HR Medical Decision Patient was seen and evaluated as above. She presents to us today with sore throat, chest tightness, history of strep throat, and shortness of breath with generalized weakness and productive cough. She carries a history of underlying asthma and allergies. After obtaining a thorough history and physical examination the above work up was performed. Chest x-ray reveals no acute process. Small hiatal hernia noted. CBC reveals no leukocytosis or anemia. Coags normal. D-dimer elevated at 650. Patient's metabolic panel reveals no evidence of kidney or liver failure emergently. Troponin normal. Lipase normal. TSH normal. Urine does reveal what I believe to be contaminated sample , she has no urinary symptoms. This will await culture. She was informed upon this. Urine test was negative. Influenza testing negative. Her vital signs here improved with fluids. Decision was made to obtain the CT scan of the patient's chest, as the d-dimer was elevated as well as her clinical presentation. This reveals no acute process. Incidental's were discussed with the patient. She appears stable for outpatient management. I suspect she is likely experiencing a viral sinus infection/postnasal drip that may be contributing to her cough as well as her headache, and exacerbating her asthma. She is to start prednisone, and use Tessalon Perles. She is early on asthma medications, Singulair, Claritin, and inhaler. She notes that she had a negative stress test performed back in November. She has no personal cardiac history. I favor that her chest pain is likely not cardiac in nature, as it was relieved with Zantac, troponin here is negative and has been greater than 6 hours since her last episode chest pain, no evidence of MT or PE on EKG per my interpretation, as well as her other symptoms that are more infectious in nature. The patient was educated upon management, had questions answered prior to discharge, and was discharged home in good condition. There was an additional prescription of azithromycin that she is to begin if she worsens in her condition of sinusitis. She is to return immediately with any chest pain that is with exertion. Case was discussed with the attending physician Bedside EKG per my inerpretation reveals normal sinus rhythm, rate of 86 bpm, with T-wave inversion in leads 3, and V1. No evidence of MT or PE. I attest that I have personally reviewed the patient medication list. The patient's blood pressure was reviewed and was found to be elevated. I believe is likely secondary situation. In the evaluation and treatment of this patient the following differential diagnoses were entertained: MT, PE, pericarditis, gastritis, asthma, allergies, COPD, pneumonia, bronchitis, among others. Impression Primary Impression: Chest tightness Additional Impression: Shortness of breath Departure Information Dispostion Home / Self-Care Condition GOOD Prescriptions Azithromycin (ZITHROMAX) 250 Mg Tab 1 PKT PO UD for 5 Days, #6 TAB Prov: Pa Arzate PA-C 08/12/17 Prednisone (Prednisone) 20 Mg Tab 0 PO DAILY, #18 TAB 3 DAILY FOR 3 DAYS, THEN 2 DAILY FOR 3 DAYS, THEN 1 DAILY FOR 3 DAYS. Prov: Pa Arzate PA-C 08/12/17 Benzonatate (Tessalon Perles) 100 Mg Cap 1 CAP PO TID for 10 Days, #30 CAP Prov: Pa Arzate PA-C 08/12/17 Referrals Jan Mauro D.O. (PCP) Patient Instructions My [facility] Additional Instructions You were seen in the emergency department for your sore throat, chest tightness , shortness of breath and tiredness . The results of your rapid strep screen were found to be negative. You will be contacted in 48-72 hrs if the results of your culture are found to be positive and any change in antibiotics is necessary. You were prescribed Azithromycin to be taken as directed ( WE DISCUSSED ONLY IF SYMPTOMS PERSISTS). This is an antibiotic. All antibiotics have the potential to cause diarrhea. Stop this medication and contact a medical provider if you were to develop any significant adverse side effects including: wheezing, shortness of breath, passing out, vomiting, or a diffuse rash. Always take antibiotics as directed and COMPLETE the ENTIRE course regardless of the improvement of your symptoms. Tessalon perles: 1 perle every 8 hours as needed for cough Prednisone as directed for inflammation In addition to your prescribed medications, you can also use the following home remedies: - Warm salt-water gargles 3 times per day can soothe your throat and help to fight infection. - Warm tea with honey can soothe your throat. Return to the emergency department if your symptoms persist or worsen over the next 2-3 days despite treatment course outlined above. Return to the emergency department if you develop the following symptoms of: inability to swallow solids , liquids, or drool; excessive wheezing or inability to catch your breath; or intractable fever or pain. Follow up with your primary care provider in 2-3 days from today's emergency department visit. Problem Qualifiers
[2017-08-12 13:48] LABS: HEMATOCRIT 37.8 % (37-47); HEMOGLOBIN 12.8 g/dL (12.0-16.0); MEAN CORPUSCULAR HEMOGLOBIN 30.5 pg (25-34); MEAN CORPUSCULAR HGB CONC 33.9 g/dl (32-36); MEAN PLATELET VOLUME 8.9 fL (7.4-10.4); PLATELET COUNT 241 K/uL (130-400); RED CELL DISTRIBUTION WIDTH CV 12.8 % (11.5-14.5); RED CELL DISTRIBUTION WIDTH SD 41.7 fL (36.4-46.3); WHITE BLOOD COUNT 5.76 K/uL (4.8-10.8)
--- NOTE | 2017-08-12 13:50 | DIAGNOSTIC IMAGING REPORT ---
CHEST ONE VIEW PORTABLE HISTORY: 47 years-old Female Cough, sore throat, chest pain, dyspnea acute cough with atypical chest pain COMPARISON: Chest radiograph and CTA of the chest 12/07/2016 TECHNIQUE: Portable AP view of the chest FINDINGS: Cardiomediastinal and hilar silhouettes are within normal limits. There is no pneumothorax, pleural effusion, focal airspace consolidation or overt pulmonary edema. Mild right hemidiaphragmatic elevation. Small hiatal hernia. Bones of the chest appear grossly intact. IMPRESSION: 1. No acute process. 2. Small hiatal hernia. The above report was generated using voice recognition software. It may contain grammatical, syntax or spelling errors. Electronically signed by: Juma Ron M.D. 08/12/2017 1:48 PM Dictated Date/Time: 08/12/2017 1:47 PM
[2017-08-12] MEDS ORDERED: CLR10 PO (13:57)
[2017-08-12] MEDS ORDERED: CHOL1TAB42 PO (13:57)
[2017-08-12] MEDS ORDERED: POTA10CA28 PO (13:57)
[2017-08-12] MEDS ORDERED: MOME220A PO (13:58)
[2017-08-12] MEDS ORDERED: RANI300T2 PO (13:58)
[2017-08-12 14:06] LABS: PTT PATIENT 24.3 SECONDS (21.0-31.0)
[2017-08-12 14:08] LABS: ALBUMIN 3.5 gm/dl (3.4-5.0); ALT/SGPT 23 U/L (12-78); AST/SGOT 10 U/L (15-37); BLOOD UREA NITROGEN 12 mg/dl (7-18); CALCIUM 8.8 mg/dl (8.5-10.1); CARBON DIOXIDE 22 mmol/L (21-32); CREATININE 0.83 mg/dl (0.60-1.20); GLUCOSE 95 mg/dl (70-99); LIPASE 130 U/L (73-393); SODIUM 137 mmol/L (136-145)
[2017-08-12 14:10] VITALS: O2SAT 96
[2017-08-12 14:19] LABS: ALKALINE PHOSPHATASE 64 U/L (45-117); CKMB 0.6 ng/ml (0.5-3.6); TOTAL PROTEIN 7.5 gm/dl (6.4-8.2)
[2017-08-12 14:56] LABS: INFLUENZA B ANTIGEN Neg for Influ B (NEG)
[2017-08-12 14:59] LABS: BASO % 0.3 %; BASO ABS # 0.02 K/uL (0-0.2); EOS % 1.4 %; EOS ABS # 0.08 K/uL (0-0.5); IG# 0.02 K/uL (0.00-0.02); LYMPH % 10.9 %; LYMPH ABS # 0.63 K/uL (1.2-3.4); MONO % 9.4 %; MONO ABS # 0.54 K/uL (0.11-0.59); NEUT % 77.7 %; NEUT ABS # 4.47 K/uL (1.4-6.5)
[2017-08-12] MEDS ORDERED: OPTIRAY 320 IV PRN (15:15)
--- NOTE | 2017-08-12 15:45 | DIAGNOSTIC IMAGING REPORT ---
(CHEST FOR PE) ANGIO WITH CT DOSE: 650.14 mGy.cm HISTORY: 47 years-old Female presents with acute cough and sore throat with dyspnea TECHNIQUE: Multiple CTA images of the chest were obtained after the intravenous administration of 89 ml Optiray 320. Coronal and sagittal MIPS were obtained from the axial data set and were submitted for review. A dose lowering technique was utilized adhering to the principles of ALARA. COMPARISON: Chest radiograph of same day, CTA of the chest 12/07/2016 FINDINGS: CTA: Heart is normal in size without pericardial effusion. Coronary arterial disease is suggested. Thoracic aorta is normal in both course and caliber with bovine aortic arch. Imaged great vessels are patent. There is no aortic aneurysm or dissection identified. The pulmonary arterial tree is opacified to level of the proximal subsegmental branches and demonstrates no focal filling defects to suggest pulmonary thromboembolic disease. CT CHEST: Mildly heterogeneous appearance of the thyroid without dominant nodule. No pathologic adenopathy identified. There is no pneumothorax, pleural effusion, focal airspace consolidation or overt pulmonary edema. Mild dependent subsegmental bibasilar atelectasis. 4 mm. Fissural lymph node is seen adjacent to the superior segment left lower lobe on image 146 series 4. No suspicious very nodules or masses identified. Central airways are patent. Prior cholecystectomy. No acute abnormality of the imaged upper abdomen. Small hiatal hernia. Radiodense focus is seen within the gastric lumen which may reflect a pill fragment. Soft tissues are unremarkable. Bones appear intact. IMPRESSION: 1. No acute intrathoracic abnormality identified, specifically no acute aortic pathology or evidence of pulmonary thromboembolic disease. 2. No focal airspace consolidation or pathologic adenopathy. 3. Prior cholecystectomy. 4. Small hiatal hernia. The above report was generated using voice recognition software. It may contain grammatical, syntax or spelling errors. Electronically signed by: Juma Ron M.D. 08/12/2017 3:43 PM Dictated Date/Time: 08/12/2017 3:39 PM
[2017-08-12 16:10] VITALS: BP 108/78; PULSE 82; O2SAT 99
[2017-08-12] MEDS ORDERED: AZIT-60 PO (16:20)
[2017-08-12] MEDS ORDERED: BENZ100C84 PO (16:20)
[2017-08-12] MEDS ORDERED: PRED20TA PO (16:20)
== END 2017-08-12 16:34 | disposition home or self-care (01) ==
LOC: C.EDB 12:43
DX: R07.89 Other chest pain (principal); R06.02 Shortness of breath; J45.909 Unspecified asthma, uncomplicated; K44.9 Diaphragmatic hernia without obstruction or gangrene; Z82.49 Family history of ischemic heart disease and other diseases of the circulatory system; Z83.3 Family history of diabetes mellitus

== ENCOUNTER → 2017-08-31 | Outpatient (CLI) | payer OTHER ==
[~2017-08-31] MED LIST changes: +CHOL1TAB42 PO; +CLR10 PO; -FLUT0.15 NAE; +MOME220A PO; +POTA10CA28 PO; +PRED20TA PO; +RANI300T2 PO
--- NOTE | 2017-08-31 11:47 | DIAGNOSTIC IMAGING REPORT ---
SINUSES MIN 3 VIEWS ROUTINE HISTORY: 47 years-old Female J32.9 [id number] acute frontal sinus pressure with concern for sinusitis COMPARISON: None available TECHNIQUE: 3 views of the paranasal sinuses FINDINGS: Mastoid air cells and paranasal sinuses appear generally clear. The bony orbits appear intact. No acute facial bone fracture or dislocation. Indeterminate 3 mm metallic density focus overlies the left mandibular body. Soft tissues are unremarkable. IMPRESSION: Unremarkable study of the paranasal sinuses. The above report was generated using voice recognition software. It may contain grammatical, syntax or spelling errors. Electronically signed by: Juma Ron M.D. 08/31/2017 11:46 AM Dictated Date/Time: 08/31/2017 11:44 AM
== END | disposition home or self-care (01) ==
LOC: C.RAD1850 11:18
PROVIDERS: ATTEND Physician Assistant
DX: J32.9 Chronic sinusitis, unspecified (principal)